=== PATIENT | female | born 1970 | race Hispanic/Latino ===

== ENCOUNTER → 2017-04-20 | Outpatient (CLI) | payer OTHER ==
[~2017-04-20] MED LIST: IRON IM; LEVO50TA11 PO; PNV1TABL77 PO; VITAMIN B12 IM
== END | disposition home or self-care (01) ==
LOC: RAH 07:20
PROVIDERS: ATTEND Family Medicine
DX: N85.00 Endometrial hyperplasia, unspecified (principal); N83.299 Other ovarian cyst, unspecified side; D64.9 Anemia, unspecified; Z90.49 Acquired absence of other specified parts of digestive tract
CPT/HCPCS: 76700; 76856

== ENCOUNTER 2017-06-24 13:30 | Inpatient (IN) | payer OTHER ==
[~2017-06-24] VITALS: Ht 170.2 cm; Wt 70.6 kg
[2017-06-24 12:16] LABS: BASOPHILS % (AUTO) 0.3 % (0.0-5.0); EOSINOPHILS % (AUTO) 1.2 % (0.0-8.0); HEMATOCRIT 27.5 % (36-48); LYMPHOCYTES % (AUTO) 31.3 % (21.0-51.0); MEAN CORPUSCULAR HEMOGLOBIN 19.9 pg (27.0-33.0); MEAN CORPUSCULAR HGB CONC 30.9 g/dL (32.0-36.0); MEAN CORPUSCULAR VOLUME 64.4 fL (79-99); MONOCYTES % (AUTO) 5.8 % (3.0-13.0); NEUTROPHILS % (AUTO) 61.4 % (40.0-77.0); PLATELET COUNT (AUTO) 209 K/uL (130-400); RED BLOOD CELL COUNT(AUTO) 4.27 MIL/uL (4.00-5.50); WHITE BLOOD COUNT (AUTO) 6.4 K/uL (4.8-10.8)
[2017-06-24 12:24] VITALS: BP 122/75
[2017-06-25] MEDS ORDERED: LEVO50TA11 PO (14:59)
[2017-06-25] MEDS ORDERED: IRON IM (14:59)
[2017-06-25] MEDS ORDERED: PNV1TABL77 PO (14:59)
[2017-06-25] MEDS ORDERED: VITAMIN B12 IM (15:00)
[2017-06-26] VITALS (24 sets, daily range): BP systolic 109–135; BP diastolic 62–86
[2017-06-26] MEDS ORDERED: LACTATED RINGERS 1000ML 1,000 ML IV ONE (10:57)
[2017-06-26] MEDS ORDERED: CALDOLOR 800MG+NS 250ML 250 ML IV ONE (10:58)
[2017-06-26] MEDS: CEFAZOLIN SODIUM 1 GM VIAL ONE ×2 (11:12→14:42)
[2017-06-26] MEDS ORDERED: PROPOFOL 10 MG/ML 20ML VIAL IV ONE (13:18)
[2017-06-26] MEDS ORDERED: GLYCOPYRROLATE 0.2 MG/ML 5 ML VIAL ONE (13:18)
[2017-06-26] MEDS ORDERED: MIDAZOLAM HCL 1 MG/ML 2ML VIAL ONE (13:18)
[2017-06-26] MEDS ORDERED: DEXAMETHASONE SOD PHOSPHATE 10MG/ML 1ML VIAL ONE (13:18)
[2017-06-26] MEDS ORDERED: LIDOCAINE PF 2% 5ML ABBOJECT ONE (13:18)
[2017-06-26] MEDS ORDERED: FENTANYL CITRATE PF 50 MCG/1 ML 2ML VIAL ONE (13:19)
[2017-06-26] MEDS ORDERED: FENTANYL CITRATE PF 50 MCG/1 ML 5ML AMP IV ONE (14:58)
[2017-06-26] MEDS ORDERED: DEXTROSE 5 %-0.45 % NACL 1,000 ML IV PRN (16:23)
[2017-06-26] MEDS ORDERED: ACETAMINOPHEN-CODEINE 300/30MG TAB PO PRN (16:30)
[2017-06-26] MEDS ORDERED: HYDROCODONE/ACETAMINOPHEN 5/325 MG TAB PO PRN ×2 (16:30)
[2017-06-26] MEDS ORDERED: PROMETHAZINE HCL 25 MG/ML 1ML AMPULE IM PRN (16:30)
[2017-06-26] MEDS ORDERED: BISACODYL 10 MG SUPP.RECT RC PRN (16:30)
[2017-06-26] MEDS ORDERED: DOCUSATE SODIUM 100 MG CAP PO PRN (16:30)
[2017-06-26] MEDS ORDERED: MEPERIDINE-PF 25 MG/ML SYG ONE ×3 (17:01→17:47)
[2017-06-26] MEDS: PROMETHAZINE HCL 25 MG/ML 1ML AMPULE IM PRN (21:29)
[2017-06-26] MEDS: MEPERIDINE-PF 75 MG/ML SYG IM PRN (21:29)
[2017-06-27] MEDS: CALDOLOR 800MG+NS 250ML 250 ML IVPB SCH ×2 (00:29→08:20)
[2017-06-27] MEDS: PROMETHAZINE HCL 25 MG/ML 1ML AMPULE IM PRN (02:29)
[2017-06-27 02:30] VITALS: BP 103/57
[2017-06-27] MEDS: MEPERIDINE-PF 75 MG/ML SYG IM PRN (02:30)
[2017-06-27] MEDS: LEVOTHYROXINE 50 MCG TABLET PO SCH (06:25)
[2017-06-27 06:53] LABS: HEMATOCRIT 22.5 % (36-48); MEAN CORPUSCULAR HEMOGLOBIN 20.5 pg (27.0-33.0); MEAN CORPUSCULAR HGB CONC 31.6 g/dL (32.0-36.0); PLATELET COUNT (AUTO) 132 K/uL (130-400); RED BLOOD CELL COUNT(AUTO) 3.45 MIL/uL (4.00-5.50); RED CELL DISTRIBUTION WIDTH 19.9 % (11.0-15.5); WHITE BLOOD COUNT (AUTO) 11.3 K/uL (4.8-10.8)
[2017-06-27 07:38] VITALS: BP 100/50
[2017-06-27] MEDS: SIMETHICONE 80 MG TAB.CHEW PO PRN ×4 (08:19→21:52)
[2017-06-27] MEDS: DOCUSATE SODIUM 100 MG CAP PO PRN ×2 (08:19→21:51)
[2017-06-27] MEDS: PRENATAL VITAMIN RX TABLET PO SCH (08:20)
[2017-06-27] MEDS: LIDOCAINE 5% TOPICAL PATCH TP SCH (08:25)
[2017-06-27] MEDS: ACETAMINOPHEN-CODEINE 300/30MG TAB PO PRN ×2 (11:14→17:13)
[2017-06-27 11:34] VITALS: BP 116/70
[2017-06-27 15:32] VITALS: BP 93/58
[2017-06-27] MEDS: IBUPROFEN 800 MG TAB PO SCH (17:12)
[2017-06-27] MEDS: BISACODYL 10 MG SUPP.RECT RC PRN (18:04)
[2017-06-27 19:01] VITALS: BP 90/56
[2017-06-27 23:20] VITALS: BP 92/59
[2017-06-28] MEDS: IBUPROFEN 800 MG TAB PO SCH ×2 (00:27→08:16)
[2017-06-28 03:25] VITALS: BP 100/62
[2017-06-28] MEDS: LEVOTHYROXINE 50 MCG TABLET PO SCH (06:31)
[2017-06-28 07:45] VITALS: BP 98/61
[2017-06-28] MEDS: PRENATAL VITAMIN RX TABLET PO SCH (08:14)
[2017-06-28] MEDS: SIMETHICONE 80 MG TAB.CHEW PO PRN (08:14)
[2017-06-28] MEDS: DOCUSATE SODIUM 100 MG CAP PO PRN (08:14)
[2017-06-28] MEDS: LIDOCAINE 5% TOPICAL PATCH TP SCH (09:00)
[2017-06-28] MEDS: BISACODYL 10 MG SUPP.RECT RC PRN (10:37)
[2017-06-28 12:30] VITALS: BP 94/55
[2017-06-28] MEDS: ACETAMINOPHEN-CODEINE 300/30MG TAB PO PRN (13:07)
== END 2017-06-28 14:55 | disposition home or self-care (01) | DRG 743 ==
LOC: DAHIP 06-26 09:35 → EDSTATUS 06-26 13:30 → WSH 06-26 18:15
PROVIDERS: ADMIT Obstetrics & Gynecology; ATTEND Obstetrics & Gynecology
PROC: 0DBU0ZX Excision of Omentum, Open Approach, Diagnostic (ICD-10-PCS; 2017-06-26)
PROC: 0UT10ZZ Resection of Left Ovary, Open Approach (ICD-10-PCS; principal; 2017-06-26 14:35)
PROC: 0UT60ZZ Resection of Left Fallopian Tube, Open Approach (ICD-10-PCS; 2017-06-26 14:35)
PROC: 0UT90ZZ Resection of Uterus, Open Approach (ICD-10-PCS; 2017-06-26 14:35)
DX: N92.1 Excessive and frequent menstruation with irregular cycle (principal); D50.9 Iron deficiency anemia, unspecified
CPT/HCPCS: 36415; 84703; 85025; 85027; 86850; 86900; 86901; 88305; 88307; A4218; A4344; A4351; J0690; J1100; J1741; J2001; J2175; J2250; J2550; J2704; J3010; J3490; J7030; J7120

== ENCOUNTER → 2018-02-16 | Outpatient (CLI) | payer OTHER ==
[2018-02-16 15:38] LABS: BASOPHILS % (AUTO) 0.6 % (0.0-5.0); HEMATOCRIT 43.8 % (36-48); LYMPHOCYTES % (AUTO) 41.4 % (21.0-51.0); MEAN CORPUSCULAR HEMOGLOBIN 32.2 pg (27.0-33.0); MEAN CORPUSCULAR HGB CONC 34.7 g/dL (32.0-36.0); MEAN CORPUSCULAR VOLUME 92.9 fL (79-99); MONOCYTES % (AUTO) 5.1 % (3.0-13.0); NEUTROPHILS % (AUTO) 50.9 % (40.0-77.0); NUCLEATED RED BLOOD CELLS 0.1 % (0.0-0.19); PLATELET COUNT (AUTO) 174 K/uL (130-400); RED BLOOD CELL COUNT(AUTO) 4.71 MIL/uL (4.00-5.50); RED CELL DISTRIBUTION WIDTH 13.6 % (11.0-15.5); WHITE BLOOD COUNT (AUTO) 5.9 K/uL (4.8-10.8)
[2018-02-16 15:57] LABS: BILIRUBIN,TOTAL 0.8 mg/dL (0.2-1.0); CREATININE 0.9 mg/dL (0.5-1.5); POTASSIUM 3.8 mmol/L (3.5-5.1); TOTAL PROTEIN, SERUM 8.5 g/dL (6.0-8.3)
== END | disposition home or self-care (01) ==
LOC: LAB 15:02
PROVIDERS: ATTEND Internal Medicine
DX: R10.12 Left upper quadrant pain (principal); R50.81 Fever presenting with conditions classified elsewhere
CPT/HCPCS: 36415; 80053; 82728; 83690; 85025; 86677